=== PATIENT | male | born 1985 | race Caucasian/White ===

== ENCOUNTER 2018-10-10 19:33 | Emergency (ER) | payer OTHER ==
[~2018-10-10] VITALS: Ht 188 cm; Wt 104.3 kg
[~2018-10-10 19:33] MED LIST: CELEXA20 MG PO; FLEXERIL PO; MS CONTIN15 MG PO; PHENERGAN 25 MG25 M1 PO; TORADOL 10 MG T10 MG PO; XANAX 0.5 MG0.5 MG PO
[2018-10-10 19:39] VITALS: BP 142/94
[2018-10-10] MEDS ORDERED: BACTRIM DS TAB1 EACH PO (20:16)
== END 2018-10-10 20:24 | disposition home or self-care (01) ==
LOC: M.ERS 19:33
DX: L02.212 Cutaneous abscess of back [any part, except buttock and flank] (principal); F41.9 Anxiety disorder, unspecified; F17.210 Nicotine dependence, cigarettes, uncomplicated

== ENCOUNTER 2019-10-04 03:34 | Emergency (ER) | payer OTHER ==
[~2019-10-04] VITALS: Ht 188 cm; Wt 108.9 kg
[~2019-10-04 03:34] MED LIST changes: +BACTRIM DS TAB1 EACH PO
[2019-10-04] MEDS ORDERED: MINOCYCLINE HC100 M2 PO (04:35)
[2019-10-04] MEDS ORDERED: BACTRIM DS TAB1 EACH PO (04:35)
[2019-10-04] MEDS ORDERED: IBUPROFEN 800800 M1 PO (04:35)
[2019-10-04 04:53] VITALS: BP 135/87
== END 2019-10-04 04:53 | disposition home or self-care (01) ==
LOC: M.ERS 03:34
DX: L02.811 Cutaneous abscess of head [any part, except face] (principal); F41.9 Anxiety disorder, unspecified